=== PATIENT | female | born 1995 | race Caucasian/White ===

== ENCOUNTER → 2018-09-06 | Outpatient (CLI) | payer OTHER ==
[~2018-09-06] MED LIST: EQUATE ALLERGY PO; IRON PO; MULT-516 PO; WOMEN'S VITAMIN PO
[2018-09-06 10:12] LABS: MEAN CORPUSCULAR HEMOGLOBIN 26.9 pg (27.0-34.8); MEAN CORPUSCULAR HGB CONC 32.8 g/dL (32.4-35.8); MEAN CORPUSCULAR VOLUME 81.8 fL (80-100); MEAN PLATELET VOLUME 10.6 fL (7.4-10.4); PLATELET COUNT 202 x10^3/uL (130-400); RED BLOOD COUNT 5.38 x10^6/uL (3.82-5.3); RED CELL DISTRIBUTION WIDTH 23.5 % (9.6-15.2)
[2018-09-06 10:14] LABS: INTERNATIONAL NORMALIZED RATIO 1.05 (0.93-1.1)
[2018-09-06 10:26] LABS: CHLORIDE 111 mmol/L (98-107)
[2018-09-06 10:35] LABS: ALANINE AMINOTRANSFERASE 24 U/L (12-78); ALBUMIN 4.2 g/dL (3.4-5.0); ALKALINE PHOSPHATASE 52 U/L (45-117); ANION GAP 6 mmol/L (5-15); BILIRUBIN,TOTAL 0.4 mg/dL (0.2-1.0); CALCIUM 9.3 mg/dL (8.5-10.1); CREATININE 0.72 mg/dL (0.55-1.02); TOTAL PROTEIN 7.9 g/dL (6.4-8.2)
[2018-09-06 10:43] LABS: BASOPHILS # (AUTO) 0.02 x10^3/uL (0-0.1); BASOPHILS % (AUTO) 0 % (0-1); EOSINOPHILS # (AUTO) 0.27 x10^3/uL (0-0.4); EOSINOPHILS % (AUTO) 5 % (1-7); LYMPHOCYTES % (AUTO) 34 % (22-44); MD SCAN; MONOCYTES # (AUTO) 0.56 x10^3/uL (0.2-0.8); MONOCYTES % (AUTO) 11 % (2-9); NEUTROPHILS # (AUTO) 2.64 x10^3/uL (1.8-6.8); NEUTROPHILS % (AUTO) 50 % (42-75)
== END | disposition home or self-care (01) ==
LOC: STAR 08:56
PROVIDERS: ATTEND Specialist
DX: Z01.818 Encounter for other preprocedural examination (principal); D26.9 Other benign neoplasm of uterus, unspecified; R19.07 Generalized intra-abdominal and pelvic swelling, mass and lump
CPT/HCPCS: 36415; 80053; 83615; 84703; 85025; 85610; 85730; 93005

== ENCOUNTER 2018-09-12 09:00 | Inpatient (IN) | payer OTHER ==
[~2018-09-12] VITALS: Ht 165.1 cm; Wt 67.4 kg
[2018-09-12] MEDS ORDERED: LACTATED RINGERS 1,000 ML IV SCH (09:48)
[2018-09-12] MEDS ORDERED: GABAPENTIN 300 MG CAPSULE PO ONE (10:00)
[2018-09-12] MEDS ORDERED: ACETAMINOPHEN 500 MG TABLET PO ONE (10:00)
[2018-09-12] MEDS ORDERED: DIAZEPAM 5 MG TABLET ONE (10:11)
[2018-09-12] MEDS ORDERED: ACETAMINOPHEN 500 MG TABLET ONE (10:11)
[2018-09-12] MEDS ORDERED: GABAPENTIN 300 MG CAPSULE ONE (10:12)
[2018-09-12 10:25] LABS: HCG UR SG 1.012 (1.003-1.030)
[2018-09-12] MEDS ORDERED: DIAZEPAM 5 MG TABLET PO ONE (10:30)
[2018-09-12] MEDS ORDERED: MIDAZOLAM 1 MG/ML, 2ML ONE (11:37)
[2018-09-12] MEDS ORDERED: FENTANYL PF 250 MCG/5ML ONE (11:37)
[2018-09-12] MEDS ORDERED: OXYTOCIN 10 UNITS/ML, 1ML ONE (11:57)
[2018-09-12] MEDS ORDERED: hydrALAzine 20 MG/ML, 1ML IV PRN (12:30)
[2018-09-12] MEDS ORDERED: DIAZEPAM 5 MG/ML, 2ML IVPush PRN (12:30)
[2018-09-12] MEDS ORDERED: HYDROmorphone 2 MG/ML, 1ML IVPush PRN (12:30)
[2018-09-12] MEDS ORDERED: OXYcodone 5 MG/5 ML ORAL.SOL UDC PO PRN (12:30)
[2018-09-12] MEDS ORDERED: LORazepam 2 MG/ML, 1ML IVPush PRN (12:30)
[2018-09-12] MEDS ORDERED: METOPROLOL 1 MG/ML, 5ML IV PRN (12:30)
[2018-09-12] MEDS ORDERED: HALOPERIDOL 5 MG/ML IV PRN (12:30)
[2018-09-12] MEDS ORDERED: PROMETHAZINE 25 MG/ML, 1ML IV PRN (12:30)
[2018-09-12] MEDS ORDERED: DIPHENHYDRAMINE 50 MG/ML, 1ML IVPush PRN (12:30)
[2018-09-12] MEDS ORDERED: LABETALOL 5MG/ML, 20ML IV PRN (12:30)
[2018-09-12] MEDS ORDERED: PROCHLORPERAZINE 5 MG/ML, 2ML IV PRN (12:30)
[2018-09-12] MEDS ORDERED: VASOPRESSIN 20 UNIT/ML, 1ML ONE (12:40)
[2018-09-12] MEDS ORDERED: THROMBIN 20,000 UNIT VIAL TP ONE (12:48)
[2018-09-12] MEDS ORDERED: SUCCINYLCHOLINE 20 MG/ML, 10ML ONE (12:52)
[2018-09-12] MEDS ORDERED: CEFAZOLIN 1,000 MG ONE (12:52)
[2018-09-12] MEDS ORDERED: NEOSTIGMINE 1 MG/ML, 10ML ONE (12:52)
[2018-09-12] MEDS ORDERED: ONDANSETRON 2MG/ML, 2ML ONE (12:52)
[2018-09-12] MEDS ORDERED: DEXAMETHASONE 4 MG/ML, 1ML ONE (12:52)
[2018-09-12] MEDS ORDERED: GLYCOPYRROLATE 0.2MG/1ML, 5ML ONE (12:52)
[2018-09-12] MEDS ORDERED: ROCURONIUM 10MG/ML,5ML ONE (12:52)
[2018-09-12] MEDS ORDERED: PROPOFOL 10 MG/ML, 20ML ONE (12:52)
[2018-09-12] MEDS ORDERED: HYDROmorphone 2 MG/ML, 1ML ONE (14:29)
[2018-09-12] MEDS ORDERED: OXYcodone 5 MG/5 ML ORAL.SOL UDC ONE (14:29)
[2018-09-12] MEDS ORDERED: FENTANYL PF 100 MCG/2ML ONE (14:38)
[2018-09-12] MEDS: FENTANYL PF 100 MCG/2ML IV PRN ×2 (14:40→14:51)
[2018-09-12] MEDS ORDERED: LORazepam 2 MG/ML, 1ML ONE (14:52)
[2018-09-12] MEDS ORDERED: KETOROLAC 30 MG/1 ML ONE (15:01)
[2018-09-12] MEDS: KETOROLAC 30 MG/1 ML IVPush PRN ×2 (15:02→15:03)
[2018-09-12 15:45] VITALS: BP 115/62
[2018-09-12] MEDS: D5%-0.45NACL+KCL 20MEQ 1,000 ML IV SCH (16:24)
[2018-09-12 17:05] VITALS: BP 92/52
[2018-09-12] MEDS: OXYcodone/APAP 5/325MG TABLET PO PRN (20:48)
[2018-09-12 21:30] VITALS: BP 101/48
[2018-09-13] MEDS: D5%-0.45NACL+KCL 20MEQ 1,000 ML IV SCH ×3 (00:03→20:00)
[2018-09-13] MEDS: KETOROLAC 30 MG/1 ML IVPush PRN ×4 (00:46→21:34)
[2018-09-13 01:03] VITALS: BP 98/56
[2018-09-13 04:32] VITALS: BP 94/57
[2018-09-13 05:30] LABS: MEAN CORPUSCULAR HEMOGLOBIN 27.9 pg (27.0-34.8); MEAN CORPUSCULAR HGB CONC 33.5 g/dL (32.4-35.8); MEAN CORPUSCULAR VOLUME 83.3 fL (80-100); MEAN PLATELET VOLUME 10.7 fL (7.4-10.4); PLATELET COUNT 131 x10^3/uL (130-400); RED BLOOD COUNT 3.04 x10^6/uL (3.82-5.3); RED CELL DISTRIBUTION WIDTH 22.1 % (9.6-15.2)
[2018-09-13 05:36] LABS: ANION GAP 4 mmol/L (5-15); CHLORIDE 112 mmol/L (98-107)
[2018-09-13 05:39] LABS: CREATININE 0.57 mg/dL (0.55-1.02)
[2018-09-13 05:52] LABS: BASOPHILS % (AUTO) 0 % (0-1); EOSINOPHILS % (AUTO) 0 % (1-7); LYMPHOCYTES # (AUTO) 1.01 x10^3/uL (1-3.4); LYMPHOCYTES % (AUTO) 8 % (22-44); MD SCAN; MONOCYTES # (AUTO) 1.39 x10^3/uL (0.2-0.8); MONOCYTES % (AUTO) 11 % (2-9); NEUTROPHILS # (AUTO) 10.27 x10^3/uL (1.8-6.8); NEUTROPHILS % (AUTO) 81 % (42-75)
[2018-09-13 07:20] VITALS: BP 99/58
[2018-09-13] MEDS: OXYcodone/APAP 5/325MG TABLET PO PRN ×3 (09:35→19:20)
[2018-09-13] MEDS: ONDANSETRON 4 MG TABLET PO SCH ×2 (09:35→19:30)
[2018-09-13 13:06] VITALS: BP 97/54
[2018-09-13 20:26] VITALS: BP 103/52
[2018-09-14] MEDS: OXYcodone/APAP 5/325MG TABLET PO PRN ×4 (00:05→21:16)
[2018-09-14] MEDS: ONDANSETRON 4 MG TABLET PO SCH ×4 (01:27→19:10)
[2018-09-14 03:19] VITALS: BP 97/60
[2018-09-14] MEDS: KETOROLAC 30 MG/1 ML IVPush PRN ×3 (03:34→23:47)
[2018-09-14 04:18] LABS: MEAN CORPUSCULAR HEMOGLOBIN 27.6 pg (27.0-34.8); MEAN CORPUSCULAR HGB CONC 32.9 g/dL (32.4-35.8); MEAN CORPUSCULAR VOLUME 83.7 fL (80-100); MEAN PLATELET VOLUME 10.9 fL (7.4-10.4); PLATELET COUNT 126 x10^3/uL (130-400); RED BLOOD COUNT 2.64 x10^6/uL (3.82-5.3); RED CELL DISTRIBUTION WIDTH 22.1 % (9.6-15.2)
[2018-09-14 04:22] LABS: ANION GAP 4 mmol/L (5-15); CALCIUM 7.8 mg/dL (8.5-10.1); CHLORIDE 111 mmol/L (98-107)
[2018-09-14 04:24] LABS: CREATININE 0.56 mg/dL (0.55-1.02)
[2018-09-14 04:55] LABS: BASOPHILS # (AUTO) 0.01 x10^3/uL (0-0.1); BASOPHILS % (AUTO) 0 % (0-1); EOSINOPHILS # (AUTO) 0.07 x10^3/uL (0-0.4); EOSINOPHILS % (AUTO) 1 % (1-7); LYMPHOCYTES # (AUTO) 1.06 x10^3/uL (1-3.4); LYMPHOCYTES % (AUTO) 11 % (22-44); MD SCAN; MONOCYTES # (AUTO) 0.83 x10^3/uL (0.2-0.8); MONOCYTES % (AUTO) 8 % (2-9); NEUTROPHILS # (AUTO) 8.03 x10^3/uL (1.8-6.8); NEUTROPHILS % (AUTO) 80 % (42-75)
[2018-09-14 06:46] VITALS: BP 94/49
[2018-09-14 07:28] VITALS: BP 88/49
[2018-09-14] MEDS ORDERED: SODIUM CHLORIDE 0.9% 1,000ML IVBOLUS ONE (08:00)
[2018-09-14] MEDS ORDERED: D5%-0.45NACL+KCL 20MEQ 1,000 ML IV SCH (09:30)
[2018-09-14 09:32] LABS: INTERNATIONAL NORMALIZED RATIO 1.11 (0.93-1.1); PROTHROMBIN TIME 11.6 Seconds (9.6-11.5)
[2018-09-14] MEDS: D5%-0.45NACL+KCL 20MEQ 1,000 ML IV SCH (10:17)
[2018-09-14 14:11] LABS: MEAN CORPUSCULAR HEMOGLOBIN 27.3 pg (27.0-34.8); MEAN CORPUSCULAR HGB CONC 32.9 g/dL (32.4-35.8); MEAN CORPUSCULAR VOLUME 82.9 fL (80-100); MEAN PLATELET VOLUME 10.5 fL (7.4-10.4); PLATELET COUNT 124 x10^3/uL (130-400); RED BLOOD COUNT 2.69 x10^6/uL (3.82-5.3); RED CELL DISTRIBUTION WIDTH 21.9 % (9.6-15.2)
[2018-09-14 14:22] LABS: HEMOGRAM NOTE RECHECKED
[2018-09-14 14:24] VITALS: BP 98/53
[2018-09-14 14:58] LABS: BASOPHILS % (AUTO) 0 % (0-1); EOSINOPHILS % (AUTO) 0 % (1-7); LYMPHOCYTES # (AUTO) 0.74 x10^3/uL (1-3.4); LYMPHOCYTES % (AUTO) 6 % (22-44); MD SCAN; MONOCYTES # (AUTO) 0.89 x10^3/uL (0.2-0.8); MONOCYTES % (AUTO) 8 % (2-9); NEUTROPHILS # (AUTO) 10.02 x10^3/uL (1.8-6.8); NEUTROPHILS % (AUTO) 86 % (42-75)
[2018-09-14 17:04] LABS: MICROSCOPIC INDICATED
[2018-09-14 19:33] VITALS: BP 96/56
[2018-09-15] MEDS: ONDANSETRON 4 MG TABLET PO SCH ×3 (01:30→10:10)
[2018-09-15 02:04] VITALS: BP 96/62
[2018-09-15] MEDS: OXYcodone/APAP 5/325MG TABLET PO PRN ×3 (04:43→14:31)
[2018-09-15 05:01] LABS: MEAN CORPUSCULAR HGB CONC 33.6 g/dL (32.4-35.8); MEAN CORPUSCULAR VOLUME 83.3 fL (80-100); MEAN PLATELET VOLUME 10.7 fL (7.4-10.4); PLATELET COUNT 115 x10^3/uL (130-400); RED BLOOD COUNT 2.51 x10^6/uL (3.82-5.3); RED CELL DISTRIBUTION WIDTH 22.2 % (9.6-15.2)
[2018-09-15 05:07] LABS: ANION GAP 4 mmol/L (5-15); CALCIUM 7.6 mg/dL (8.5-10.1); CHLORIDE 110 mmol/L (98-107); CREATININE 0.45 mg/dL (0.55-1.02)
[2018-09-15 05:58] LABS: BASOPHILS # (AUTO) 0.01 x10^3/uL (0-0.1); BASOPHILS % (AUTO) 0 % (0-1); EOSINOPHILS # (AUTO) 0.21 x10^3/uL (0-0.4); EOSINOPHILS % (AUTO) 2 % (1-7); LYMPHOCYTES # (AUTO) 1.29 x10^3/uL (1-3.4); LYMPHOCYTES % (AUTO) 13 % (22-44); MD SCAN; MONOCYTES # (AUTO) 0.93 x10^3/uL (0.2-0.8); MONOCYTES % (AUTO) 9 % (2-9); NEUTROPHILS # (AUTO) 7.91 x10^3/uL (1.8-6.8); NEUTROPHILS % (AUTO) 76 % (42-75)
[2018-09-15 07:10] VITALS: BP 99/64
[2018-09-15] MEDS ORDERED: D5%-0.45NACL+KCL 20MEQ 1,000 ML IV SCH (09:30)
[2018-09-15] MEDS ORDERED: OXYC-302 PO (10:00)
[2018-09-15] MEDS ORDERED: ONDA4TAB7 PO (10:00)
[2018-09-15] MEDS ORDERED: FERR324T5 PO (10:01)
[2018-09-15] MEDS ORDERED: PERI-COLACE PO (10:04)
[2018-09-15 12:50] LABS: MEAN CORPUSCULAR HEMOGLOBIN 27.4 pg (27.0-34.8); MEAN CORPUSCULAR HGB CONC 32.8 g/dL (32.4-35.8); MEAN CORPUSCULAR VOLUME 83.5 fL (80-100); MEAN PLATELET VOLUME 10.4 fL (7.4-10.4); PLATELET COUNT 147 x10^3/uL (130-400); RED BLOOD COUNT 2.92 x10^6/uL (3.82-5.3); RED CELL DISTRIBUTION WIDTH 21.6 % (9.6-15.2)
[2018-09-15 13:22] LABS: MD YES
[2018-09-15 13:35] LABS: BAND#(MANUAL) 0.81 x10^3/uL; BANDS%(MANUAL) 8 % (0-7); EOS% (MANUAL) 4 % (1-7); LYMPH#(MANUAL) 0.71 x10^3/uL (1-3.4); LYMPHS% (MANUAL) 7 % (22-44); MONOS#(MANUAL) 0.91 x10^3/uL (0.3-2.7); MONOS% (MANUAL) 9 % (2-9); SEG#(MANUAL) 7.27 x10^3/uL (1.8-6.8); SEGS% (MANUAL) 72 % (42-75)
[2018-09-15 13:38] LABS: <PLATELET ESTIMATE> ADEQUATE; ANISOCYTOSIS 1+
[2018-09-15 13:39] LABS: GIANT PLATELETS 1+; OVALOCYTES 1+; POLYCHROMASIA 1+
[2018-09-15 13:44] VITALS: BP 106/55
[2018-09-15] MEDS ORDERED: KETO10TA PO (14:53)
[2019-09-15] MEDS ORDERED: D5%-0.45NACL+KCL 20MEQ 1,000 ML IV SCH (19:30)
== END 2018-09-15 15:02 | disposition home or self-care (01) | DRG 742 ==
LOC: ORIP 09:03 → 4NOR 15:36 → DCLOUNGE 09-15 14:51
PROVIDERS: ADMIT Specialist; ATTEND Specialist
PROC: 3E0T3BZ Introduction of Anesthetic Agent into Peripheral Nerves and Plexi, Percutaneous Approach (ICD-10-PCS; 2018-09-12)
PROC: 0UB90ZZ Excision of Uterus, Open Approach (ICD-10-PCS; principal; 2018-09-12 12:30)
DX: D25.2 Subserosal leiomyoma of uterus (principal); K56.7 Ileus, unspecified; D64.9 Anemia, unspecified; R42 Dizziness and giddiness
CPT/HCPCS: 36415; 80048; 81001; 81025; 85025; 85610; 85730; 86850; 86900; 86923; 87040; 88305; 88331; 88341; 88342; G0378; J0690; J1100; J1170; J1885; J2250; J2405; J2704; J2710; J3010; Q0162; C1765; C1769; J0330; J2060; J2590; J3480; J7030; J7120